=== PATIENT | male | born 1945 | race Caucasian/White ===

== ENCOUNTER 2019-12-15 04:50 | Emergency (ER) | payer MEDICARE, SELFPAY ==
--- NOTE | ~2019-12-15 | CT_ITS ---
EXAMINATION: CT abdomen pelvis w con DATE: 12/15/2019 06:08 INDICATION: Abdominal pain. TECHNIQUE: Computed tomography (CT) of the abdomen and pelvis was performed with 100 mL Omnipaque 350 intravenous contrast. Automated exposure control and iterative reconstruction technique were employe d. The dose-length product was 496.01 mGy-cm. COMPARISON: CT abdomen and pelvis 10/13/2017, PET/CT 01/18/2017 FINDINGS: The visualized portions of the lung bases demonstrate mild atelectasis. No pleural effusion . The heart size is normal. No pericardial effusion. There are cysts in the liver measuring up to 2.6 cm. The gallbladder, spleen, pancreas, and adrenal glands are normal. There is cortical thinning of the kidneys. There are cysts in the kidneys measuring up to 12 mm on the right. There is a 1.8 cm hem orrhagic cyst in left kidney. There is a 9 mm stone in right kidney. There is a 1 mm stone in left ki dney. The prostate is moderately enlarged. There is a 7 mm stone in the bladder. There is diverticulo sis of the colon without evidence of diverticulitis. There are no dilated loops of bowel. The pancrea s are visualized. There is an anastomosis of small bowel. There are 3 mesenteric masses measuring up to 2.0 x 1.5 cm. The largest mesenteric mass measured 4.0 x 2.4 x 4.4 cm on the prior exam before yoselin lakisha. There is no free intraperitoneal fluid. There is severe lumbar spondylosis. There are chronic c ompression fractures and lower thoracic spine. IMPRESSION: 1. Mesenteric masses measuring up to 2.0 x 1.5 cm. Surgical pathology on 01/11/2018 demonstrated scle rosing mesenteritis. 2. Nonobstructing stones in the kidneys and bladder. Reviewed, dictated and finalized at location A. IMPRESSION: 1. Mesenteric masses measuring up to 2.0 x 1.5 cm. Surgical pathology on 2017 demonstrated sclerosing mesenteritis. 2. Nonobstructing stones in the kidneys and bladder.
--- NOTE | 2019-12-15 04:51 | ED.GENADULT ---
HPI - General Adult General Chief complaint: Abdominal Pain Stated complaint: Abd pain Time Seen by Provider: 12/15/19 04:51 History of Present Illness HPI narrative: 74 yo male with h/o ventral hernia s/p lauren presents to the ED c/o abdominal pain. He has been having intermittent abdominal pain for a few weeks. Usually with activity and resolves on its own. Tonight the pain would not go away. The pain is diffuse. Feels like gas. 6/10 in intensity. He reports that he usually has a bowel movement every day, but he only had a small one yesterday and would not be able to have one this morning. Hernia repair about [address] Montero. Related Data Home Medications Medication Instructions Recorded Confirmed Advanced Nerve Support 4 cap PO BID 01/05/19 01/13/19 Azo Urinary Tract Health 1 tablet PO DAILY 01/05/19 01/13/19 Clear Tinnitis 1 tablet PO BID 01/05/19 01/13/19 Daily Build 0.5 tablet PO BID 01/05/19 01/13/19 Efa 1 tablet PO QID 01/05/19 01/13/19 Extreme [place]-3 1 cap PO BID 01/05/19 01/13/19 Formula 220 1 tablet PO BID 01/05/19 01/13/19 Gluco Gel 3 cap PO BID 01/05/19 01/13/19 Joint Health 1 tablet PO QID 01/05/19 01/13/19 Total Restore 1 cap PO BID 01/05/19 01/13/19 alpha lipoic acid 300 mg PO BID 01/05/19 01/13/19 ascorbic acid (vitamin C) 200 mg PO DAILY 01/05/19 01/13/19 cranberry 500 mg PO BID 01/05/19 01/13/19 cyanocobalamin (vitamin B-12) 1,000 mcg PO BID 01/05/19 01/13/19 [Vitamin B-12] niacin 500 mg PO BID 01/05/19 01/13/19 resveratrol 100 mg PO DAILY 01/05/19 01/14/19 selenium 100 mcg PO BID 01/05/19 01/13/19 tamsulosin 1 mg PO DAILY 01/05/19 01/13/19 vitamin D3-vitamin K2 1 tablet PO BID 01/05/19 01/13/19 vitamin E 1,000 unit PO DAILY 01/05/19 01/13/19 Allergies Allergy/AdvReac Type Severity Reaction Status Date / Time No Known Allergies Allergy Verified 02/06/19 13:33 Review of Systems Review of Systems: All systems reviewed & are unremarkable except as noted in HPI and below Constitutional: Constitutional: Denies chills and Denies fever(s) Cardiovascular: Cardiovascular: Denies chest pain Respiratory: Respiratory: Denies cough and Denies dyspnea Gastrointestinal: Gastrointestinal: Reports abdominal pain and Reports nausea Genitourinary: Genitourinary: Denies hematuria and Denies dysuria Musculoskeletal: Musculoskeletal: Denies back pain Neurologic: Denies numbness and Denies weakness PMFSH Past Medical History Medical History 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 Urinary retention due to benign prostatic hyperplasia Takes Flomax Surgical History Surgical History History of resection of small bowel Hand access laparoscopic for sclerosing mesenteritis Hx of umbilical hernia repair Underlay proceed mesh 4.3 centimeters Family History Family History Mother Family history of Alzheimer's disease Father Family history of pancreatic cancer Other Diabetes mellitus Social History Social History Smoking status: Never smoker Alcohol intake: current Gender identity (if verbalized by the patient): Male Exam Const: General: healthy appearing, no acute distress and alert Nutritional Appearance: well nourished Orientation/consciousness: patient oriented x3 HENMT: Head: normal to inspection Resp: Effort & Inspection: normal respiratory effort Auscultation: clear to auscultation bilaterally Cardio: Rate: bradycardic Rhythm: regular rhythm GI: Inspection: distended GI Palp: No Tenderness to palpation present (GI), No Guarding due to palpation present (GI) and No Rebound tenderness present Skin: General skin exam: normal color Neuro: General: patient oriented x3, moves all extremities, no focal motor deficits and CN's II-XI in
[2019-12-15 04:53] VITALS: BP 165/56; PULSE 41; RESP 15; TEMP 36.4; O2SAT 100
[2019-12-15] MEDS: SODIUM CHLORIDE 0.9% IV 1,000 ML 999 ML IV CONT (05:07)
[2019-12-15 05:24] LABS: Basophils Percent Auto 0.4 % (0.2-1.2); Eosinophils Absolute Auto 0.3 K/mm3 (0-0.3); Eosinophils Percent Auto 6.7 % (0-4.4); Hematocrit 38.2 % (42.0-52.0); Hemoglobin 12.7 g/dL (14.0-18.0); Immature Granulocyte Absolute 0.01 K/mm3 (0.00-0.031); Immature Granulocyte Percent A 0.2 % (0-0.5); Lymphocytes Absolute Auto 1.18 K/mm3 (0.9-3.2); Lymphocytes Percent Auto 23.9 % (18.3-44.2); Mean Corpuscular HGB Conc 33.2 g/dl (32-36); Mean Corpuscular Hemoglobin 30.8 pg (26-34); Mean Corpuscular Volume 92.7 fl (80-100); Mean Platelet Volume 10.4 fl (7.4-10.4); Monocytes Absolute Auto 0.6 K/mm3 (0.1-0.6); Monocytes Percent Auto 11.7 % (2.6-8.5); Neutrophils Absolute Auto 2.8 K/mm3 (1.3-6.7); Neutrophils Percent Auto 57.1 % (45.5-73.1); Platelet Count Result 181 k/mm3 (150-375); Red Blood Count 4.12 M/mm3 (4.6-6.20); Red Cell Distribution Width 12.4 % (11.5-14.5); White Blood Count 4.9 K/mm3 (4.5-10.0)
[2019-12-15 05:36] LABS: Add Urine Microscopic? YES; Appearance Urine Cloudy (Clear); Bilirubin Urine Negative (Negative); Blood Urine Negative (Negative); Color Urine Amber (Yellow); Glucose Urine UA Negative (Negative); Ketones Urine Negative (Negative); Leukocyte Esterase Ur Negative LEU/UL (Negative); Mucus Urine Rare /lpf; Nitrate Urine Negative (Negative); Protein Urine Negative (Negative); RBC Urine 21-50 /hpf (0-2); Specific Grav Ur 1.017 (1.001-1.035); Urobilinogen Urine Negative mg/dL (<2.0); WBC Urine 0-3 /hpf
[2019-12-15 05:43] LABS: Alanine Aminotransferase 28 U/L (4-50); Albumin Level 4.2 g/dL (3.5-5.1); Alkaline Phosphatase 71 U/L (38-126); Anion Gap 7 mmol/L (8-16); Aspartate Amino Transferase 36 U/L (17-59); Bilirubin,Total 0.5 mg/dL (0.2-1.3); Blood Urea Nitrogen 31 mg/dL (9-20); Carbon Dioxide 26 mmol/L (22-30); Chloride 106 mmol/L (98-107); Estimated Glomerular Filt Rate 59; Glucose 103 mg/dL (75-110); Lipase 51 U/L (23-300); Potassium 4.5 mmol/L (3.4-5.0); Sodium 139 mmol/L (137-145)
--- NOTE | 2019-12-15 05:44 | ECG_ITS ---
Measurements Intervals [place] Rate: 42 P: 81 DC: 178 QRS: -1 QRSD: 90 T: 71 QT: 481 QTc: 404 Interpretive Statements SINUS BRADYCARDIA VENTRICULAR PREMATURE COMPLEX NONSPECIFIC T-WAVE ABNORMALITY- HIGH LATERAL LEADS BASELINE ARTIFACT- I, III, AVL, V2-V3 ABNORMAL ECG Electronically Signed On 12-15-2019 6:45:24 CDT by Musa Yung D.O.
[2019-12-15 06:13] VITALS: BP 133/57; PULSE 40; RESP 18; O2SAT 100
[2019-12-15] MEDS: TAMSULOSIN HCL 0.4 MG CAPSULE PO (06:24)
[2019-12-15 07:57] VITALS: BP 149/64; PULSE 45; RESP 22; O2SAT 100
== END 2019-12-15 07:58 | disposition home or self-care (01) ==
PROVIDERS: Emergency Provider Emergency Medicine; PCP Pediatrics
DX: N40.1 Benign prostatic hyperplasia with lower urinary tract symptoms (principal); R33.8 Other retention of urine; R00.1 Bradycardia, unspecified; I49.3 Ventricular premature depolarization; R94.31 Abnormal electrocardiogram [ECG] [EKG]
CPT/HCPCS: 36415; 74177; 80053; 81001; 83690; 85025; 93005; 96360; 99284; A9270; J7030; Q9967

== ENCOUNTER 2024-01-10 14:57 | Outpatient (CLI) | payer MEDICARE, SELFPAY ==
--- NOTE | ~2024-01-10 | XR_ITS ---
XR abdomen/kub 1V Ordering provider: Osmar Alvarenga MD History: . CALCIUM KIDNEY STONE NO HEMATURIA BACK PAIN . Comparison: None. FINDINGS: BOWEL: Nonobstructive bowel gas pattern. ORGANOMEGALY: None. SIGNIFICANT PATHOLOGIC CALCIFICATIONS: Stones are seen in the right kidney area. Calcific shadow projected over the left transverse process of L2 most likely stone in the renal pelvi s or upper ureter. OTHER: No free air is seen under the diaphragm. Dextroscoliosis. Pubic symphysitis. Mild bilateral hi p osteoarthritic changes. IMPRESSION: NO ACUTE ABDOMINAL FINDINGS. Bilateral renal stones. Reviewed, dictated and finalized at location A. 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
== END 2024-01-10 14:58 | disposition home or self-care (01) ==
LOC: ANHIMG 14:58
PROVIDERS: PCP Pediatrics; Visit Provider Urology
DX: N20.0 Calculus of kidney (principal)
CPT/HCPCS: 74018

== ENCOUNTER 2024-01-15 17:12 | Observation (INO) | payer MEDICARE, OTHER, SELFPAY ==
--- NOTE | ~2024-01-15 | XR_ITS ---
EXAMINATION: XR retrograde pyelo w/stent RT DATE: 01/16/2024 7:50 AUTO DAMAGE APPRAISER INDICATION: Stone . TECHNIQUE: 7 fluoroscopic images of the right abdomen and pelvis were obtained during right retrograd e pyelography with stent placement. I was not present during the procedure. Fluoroscopy exposure time was 58 seconds. Air Kerma 22.97 mGy. DAP 1.05 mGym2. COMPARISON: None FINDINGS/IMPRESSION: Fluoroscopic documentation of right retrograde pyelography with stent placement. Please refer to the operative note for complete procedural details . Reviewed, dictated and finalized at location K. DAMAGE APPRAISER
--- NOTE | ~2024-01-15 | CT_ITS ---
EXAMINATION: CT abdomen pelvis wo con DATE: 01/15/2024 19:28 INDICATION: R flank pain, known stone TECHNIQUE: Computed tomography (CT) of the abdomen and pelvis was performed without intravenous contr ast. Automated exposure control and iterative reconstruction technique were employed. The dose-length product was 260.04 mGy-cm. COMPARISON: 12/15/2019 and 10/13/2017. FINDINGS: Lower thorax: Mild bilateral gynecomastia. Aortic valve calcification. Calcified right lower lobe gra nuloma. Bibasilar scar/atelectasis. Liver: Granulomatous calcification. Left lobe cyst. Biliary/Gallbladder: Gallbladder is normal. No bile duct dilation. Pancreas: Mild fatty atrophy. Spleen: Normal. Adrenals:No mass. Kidneys: 10 x 12 mm stone at the right UPJ. Multiple additional nonobstructing bilateral renal calcif ications. Mild right pelviectasis and caliectasis. Simple left midpole cyst. Multiple subcentimeter h ypodense lesions likely representing hemorrhagic or proteinaceous cysts. Indeterminate 1.0 cm right u pper pole lesion that is stable and likely represents a proteinaceous or hemorrhagic cyst. 2.1 cm lef t lower pole lesion, not significantly changed, likely proteinaceous or hemorrhagic cyst. Multiple ad ditional bilateral renal hypodensities that are too small to characterize. GI tract: No small or large bowel dilation. Appendix not confidently visualized. Mesentery/Peritoneum: No free air. Nodular calcified mesenteric masses, slightly increased in size. Retroperitoneum: No mass. Atherosclerotic abdominal aortic and/or arterial calcifications. Pelvis: Partially distended urinary bladder with mild wall thickening. Prostatomegaly 3 mm and 4 mm c alcifications in the distal right ureter. Soft Tissues: Uncomplicated fat-containing bilateral inguinal hernias Bones: No acute osseous finding. Stable mild height loss at T12. IMPRESSION: 10 x 12 mm right UPJ stone with mild pelviectasis and caliectasis. 3 mm and 4 mm calcifications also noted in the distal right ureter. Nodular calcified mesenteric masses, previously biopsied revealing fibrosis with lymphoplasmacytic in filtrate. 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 Urinary bladder wall thickening likely secondary to incomplete distention, cystitis, or outlet compro mise from prostatomegaly. Reviewed, dictated and finalized at location [facility] IMPRESSION: 10 x 12 mm right UPJ stone with mild pelviectasis and caliectasis. 3 mm and 4 m m calcifications also noted in the distal right ureter. Nodular calcified mesenteric masses, previously biopsied revealing fibrosis wit h lymphoplasmacytic infiltrate. Imaging appearance also consistent with scleros ing mesenteritis and carcinoid. Urinary bladder wall thickening likely secondary to incomplete distention, cyst itis, or outlet compromise from prostatomegaly.
[2024-01-15 17:21] VITALS: BP 187/82; PULSE 52; RESP 16; TEMP 36.2; O2SAT 100
[2024-01-15 17:38] LABS: Basophils Percent Auto 0.3 % (0.2-1.2); Eosinophils Absolute Auto 0.1 K/mm3 (0-0.3); Eosinophils Percent Auto 1.6 % (0-4.4); Hematocrit 38.3 % (42.0-52.0); Hemoglobin 12.9 g/dL (14.0-18.0); Immature Granulocyte Absolute 0.03 K/mm3 (0.00-0.031); Immature Granulocyte Percent A 0.3 % (0-0.5); Lymphocytes Absolute Auto 0.92 K/mm3 (0.9-3.2); Lymphocytes Percent Auto 10.6 % (18.3-44.2); Mean Corpuscular HGB Conc 33.7 g/dl (32-36); Mean Corpuscular Hemoglobin 30.6 pg (26-34); Mean Platelet Volume 9.2 fl (7.4-10.4); Monocytes Absolute Auto 0.8 K/mm3 (0.1-0.6); Monocytes Percent Auto 8.8 % (2.6-8.5); Neutrophils Absolute Auto 6.8 K/mm3 (1.3-6.7); Neutrophils Percent Auto 78.4 % (45.5-73.1); Platelet Count Result 231 k/mm3 (150-375); Red Blood Count 4.21 M/mm3 (4.6-6.20); Red Cell Distribution Width 12.4 % (11.5-14.5); White Blood Count 8.7 K/mm3 (4.5-10.0)
--- NOTE | 2024-01-15 17:44 | ED.BACK ---
HPI - Back Pain/Injury General Chief Complaint: Back Pain/Injury Stated Complaint: right side kidney stone pain Time Seen by Provider: 01/15/24 17:35 Source: patient Mode of arrival: ambulatory Limitations: no limitations History of Present Illness HPI Narrative: This is an 78-year-old male with known nephrolithiasis on the right-sided presents to the ED for chief complaint of right flank pain onset over a week ago and has been intermittent. Reports that he was seen by earlier this week who wanted him in for a lithotripsy, however they were not able to do this due to patient being on diclofenac. Patient reports that yesterday he was feeling all right but today the pain came on all worse and was associated with nausea but no vomiting. Denies urinary burning, dysuria or hematuria. Denies any left-sided pain. Related Data Home Medications Medication Instructions Recorded Confirmed Advanced Nerve Support 4 cap PO BID 01/05/19 01/15/24 Efa 1 tablet PO QID 01/05/19 01/15/24 Formula 220 1 tablet PO BID 01/05/19 01/15/24 Gluco Gel 3 cap PO BID 01/05/19 01/15/24 alpha lipoic acid 300 mg capsule 300 mg PO BID 01/05/19 01/15/24 cranberry 500 mg capsule 500 mg PO BID 01/05/19 01/15/24 omega 3-dha 120 mg-epa 180 mg-fish 1 cap PO BID 01/05/19 01/15/24 oil 600 mg capsule (Extreme [place]-3) resveratrol 100 mg capsule 100 mg PO DAILY 01/05/19 01/15/24 tamsulosin 0.4 mg capsule 1 mg PO DAILY 01/05/19 01/15/24 vitamin E 670 mg (1,000 unit) 1,000 unit PO DAILY 01/05/19 01/15/24 capsule Allergies Allergy/AdvReac Type Severity Reaction Status Date / Time No Known Allergies Allergy Verified 01/15/24 17:19 Review of Systems Review of Systems: All systems as dictated in HPI [facility] Past Medical History Medical History (Updated 01/16/24 @ 00:44 by Desiree Andrade DO) Calculus, ureteral 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 Montero History of resection of small bowel (2018) Hand access laparoscopic for sclerosing mesenteritis Hx of umbilical hernia repair (2014) Initial surgery in 2014: Underlay proceed mesh 4.3 centimeters Family History Family History Mother Family history of Alzheimer's disease Father Family history of pancreatic cancer Other Diabetes mellitus Social History Social History (Updated 01/16/24 @ 00:48 by Desiree Andrade DO) Social History: Patient lives with his 2nd . They have been since 1982. 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 He and his spend part of the year in [place]. He raised 2 sons. He is a lifelong nonsmoker and does not drink alcohol or use illicit substances. Code status: Full code Healthcare power of commercial real estate attorney: Smoking status: Never smoker Alcohol intake: never Substance use: never Do You Feel Safe in your Home?: Yes Lack of Transportation: No Lack of Food: Never True Current Housing: I Have Housing Concerned About Future Housing: No Difficulty Paying Gas/Electric Bills: No Difficulty Paying for Meds: No Currently Unemployed: No Education: Bachelor's Degree Difficulty w/ Childcare or Family Care: No Gender identity (if verbalized by the patient): Male Spiritual care concerns: No Exam Narrative: GENERAL: Well-appearing, well-nourished, and in no acute distress. HEAD: Normocephalic, atraumatic. EYES: PERRLA and EOMI. ENT: Nares clear, no rhinorrhea or epistaxis. Mucous membranes moist. Oropharynx without tonsillar hypertrophy exudate or other lesions. NECK: Supple. No adenopathy or masses. CHEST: No respiratory distress. Clear to auscultation. No wheezes rales or rhonchi HEART: Regular rate and rhythm. No murmur heard. Normal peripheral pulses. ABDOMEN: Right flank tenderness present. Negative left flank. Soft, otherwise nontender, nondistended, normal active bowel sounds. MSK: Normal range of motion. No edema. SKIN: Warm, dry, no rash. NEURO: Alert and oriented x4. No focal deficits. PSYCH: Normal mood and affect. Course Vital Signs Vital signs: Vital Signs Temperature 97.2 F L 01/15/24 17:21 Pulse Rate 52 L 01/15/24 17:21 Respiratory Rate 16 01/15/24 17:21 Blood Pressure 187/82 H 01/15/24 17:21 Pulse Oximetry 100 01/15/24 17:21 Temperature 98.5 F 01/15/24 23:56 Pulse Rate 59 L 01/15/24 23:56 Respiratory Rate 20 01/15/24 23:56 Blood Pressure 108/54 L 01/15/24 23:56 Pulse Oximetry 98 01/15/24 23:56 MDM - Back Pain/Injury MDM Narrative Medical decision making narrative: This is a 78 yo male presents to the ED for right flank pain over the past 2 weeks and worse today. Vitals show elevated blood pressure but otherwise normal. Exam shows right flank tenderness as above. Lab work shows unremarkable CBC. CMP shows slightly elevated potassium of 5.1. Creatinine is 2.00 and BUN 22, which is a bump from his baseline in 2019. Suspect dehydration versus diclofenac use for cause of elevated creatinine, along with the stone. Urinalysis unremarkable. CT abdomen pelvis without con: IMPRESSION: 10 x 12 mm right UPJ stone with mild pelviectasis and caliectasis. 3 mm and 4 mm calcifications also noted in the distal right ureter. Nodular calcified mesenteric masses, previously biopsied revealing fibrosis with lymphoplasmacytic infiltrate. 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 Urinary bladder wall thickening likely secondary to incomplete distention, cystitis, or outlet compromise from prostatomegaly. Presentation consistent with right ureterolithiasis. Discussed the case with Dr. العراقي (Urology) does recommend admission to the hospitalist. Recommends keeping the patient NPO midnight. Patient is understanding and agreeable with this plan of admission. Discussed the case with Dr. Andrade who agrees to admit the patient to medical floor and is requesting maintenance fluids ordered. Lab Data 01/15/24 17:29 01/15/24 17:29 Labs: Lab Results 01/15/24 01/15/24 Range/Units 17:29 17:56 WBC 8.7 (4.5-10.0) K/mm3 RBC 4.21 L (4.6-6.20) M/mm3 Hgb 12.9 L (14.0-18.0) g/dL Hct 38.3 L (42.0-52.0) % MCV 91.0 (80-100) fl MCH 30.6 (26-34) pg MCHC 33.7 (32-36) g/dl RDW 12.4 (11.5-14.5) % Plt Count 231 (150-375) k/mm3 MPV 9.2 (7.4-10.4) fl Immature Gran % (Auto) 0.3 (0-0.5) % Neut % (Auto) 78.4 H (45.5-73.1) % Lymph % (Auto) 10.6 L (18.3-44.2) % King % (Auto) 8.8 H (2.6-8.5) % Eos % (Auto) 1.6 (0-4.4) % Baso % (Auto) 0.3 (0.2-1.2) % Lymph # (Auto) 0.92 (0.9-3.2) K/mm3 King # (Auto) 0.8 H (0.1-0.6) K/mm3 Eos # (Auto) 0.1 (0-0.3) K/mm3 Baso # (Auto) 0.0 (0.0-0.1) K/mm3 Abs Immat Gran (auto) 0.03 (0.00-0.031) K/mm3 Absolute Neuts (auto) 6.8 H (1.3-6.7) K/mm3 Absolute Nucleated RBC 0.000 (0.0-0.012) K/mm3 Nucleated RBC % 0.0 (0.0-0.2) % PT 14.0 (11.1-14.7) Seconds INR 1.1 APTT 28.5 (22.3-36.8) Seconds Sodium 137 (137-145) mmol/L Potassium 5.1 H (3.4-5.0) mmol/L Chloride 102 (98-107) mmol/L Carbon Dioxide 25 (22-30) mmol/L Anion Gap 10 (4-12) mmol/L BUN 22 H (9-20) mg/dL Creatinine 2.00 H (0.7-1.3) mg/dL Estim Creat Clear Calc 24 ml/min Estimated GFR 32 L (59 - ) Glucose 107 (65-110) mg/dL Calcium 9.1 (8.4-10.2) mg/dL Total Bilirubin 0.3 (0.2-1.3) mg/dL AST 21 (17-59) U/L ALT 17 (6-50) U/L Alkaline Phosphatase 76 (38-126) U/L Total Protein 8.0 (6.3-8.2) g/dL Albumin 4.5 (3.5-5.1) g/dL Urine Color Yellow (Yellow) Urine Appearance Clear (Clear) Urine pH 6.0 (5.0-9.0) Ur Specific [place] 1.020 (1.001-1.035) Urine Protein Negative (Negative) mg/dL Urine Glucose (UA) Negative (Negative) mg/dL Urine Ketones Negative (Negative) mg/dL Ur Blood (Man) Negative (Negative) Urine Nitrate Negative (Negative) Urine Bilirubin Negative (Negative) Urine Urobilinogen 0.2 (<2.0) mg/dL Leukocyte Esterase Rfl Negative (Negative) ANEL/UL Discharge Plan Discharge Clinical Impression: Calculus, ureteral, Creatinine elevation Patient Disposition: Still a Patient Condition: Stable
[2024-01-15 17:49] LABS: Alanine Aminotransferase 17 U/L (6-50); Albumin Level 4.5 g/dL (3.5-5.1); Alkaline Phosphatase 76 U/L (38-126); Anion Gap 10 mmol/L (4-12); Aspartate Amino Transferase 21 U/L (17-59); Bilirubin,Total 0.3 mg/dL (0.2-1.3); Blood Urea Nitrogen 22 mg/dL (9-20); Calcium 9.1 mg/dL (8.4-10.2); Carbon Dioxide 25 mmol/L (22-30); Chloride 102 mmol/L (98-107); Estimated CRCL calculation 24 ml/min; Estimated Glomerular Filt Rate 32; Glucose 107 mg/dL (65-110); Potassium 5.1 mmol/L (3.4-5.0); Sodium 137 mmol/L (137-145)
[2024-01-15] MEDS: ONDANSETRON INJ 4 MG/2 ML VIAL IV PUSH ×2 (17:49→19:49)
[2024-01-15] MEDS: HYDROmorphone HCL INJ (*CRX) 1 MG/ML SYR 0.5 MG IV PUSH ×2 (17:49→19:49)
[2024-01-15 17:50] LABS: INR 1.1; Partial Thromboplastin Time 28.5 Seconds (22.3-36.8)
[2024-01-15 18:03] LABS: Add Urine Microscopic? NO; Appearance Urine Clear (Clear); Bilirubin Urine Negative (Negative); Blood Urine Negative (Negative); Color Urine Yellow (Yellow); Glucose Urine UA Negative (Negative); Ketones Urine Negative (Negative); Leukocyte Esterase Ur Negative LEU/UL (Negative); Nitrate Urine Negative (Negative); Protein Urine Negative (Negative); Urobilinogen Urine 0.2 mg/dL (<2.0)
[2024-01-15 19:49] VITALS: BP 154/74; PULSE 50; RESP 18; O2SAT 100
--- NOTE | 2024-01-15 20:22 | WPDURCON ---
Assessment and Plan Assessment and plan (1) Calculus of ureter: Code(s): N20.1 - Calculus of ureter Status: Acute Assessment and Plan: Assessment: - Right ureteral stones (small distal, large proximal) with obstruction and acute kidney injury Plan: - Admit to hospital - NPO after midnight - Cystoscopy, right retrograde pyelogram, ureteroscopy, laser lithotripsy, and stent placement tomorrow -- will try to treat the distal stones, stent him, setting him up for a single surgery electively as an outpatient: Right ESWL w/ Stent removal - Prophylactic antibiotics: Rocephin 1 gram being given in ER Urology Consult Note HPI Date Seen: 01/16/24 Primary Care Provider: Cody Garza MD Consult Narrative Narrative: Jaden Flores is an established patient of Dr. Alvarenga with a known right-sided kidney stone. He was scheduled for lithotripsy this week but it was postponed due to diclofenac use. Yesterday he was feeling okay, but today presented to the ED with worsening right flank pain. CT abdomen/pelvis without contrast demonstrates a 1.2 cm right proximal ureteral stone, 3-4 mm distal right ureteral stones, 8 mm non-obstructing right lower pole stone, and 3-4 mm non-obstructing left lower pole stone. There is mild pelvicaliectasis on the right side. -PERTINENT LABS: 01/15/2024 - WBC: 8.7 01/15/2024 - Hematocrit: 38 01/15/2024 - Platelets: 231 01/15/2024 - Creatinine: 2.0 (baseline 0.8) -PERTINENT IMAGIN01/15/2024 CT Abdomen/Pelvis (without contrast) - 1.2 cm right proximal ureteral stone, 3-4 mm distal right ureteral stones, 8 mm non-obstructing right lower pole stone, 3-4 mm non-obstructing left lower pole stone, mild right-sided pelvicaliectasis 01/15/2024 UA: Negative for blood or infection Review of Systems Review of Systems: All systems reviewed & are unremarkable except as noted in HPI and below PMFSH Past Medical History Medical History (Updated 01/16/24 @ 06:45 by Kristin Thomas CRNA) Arthritis Calculus, ureteral 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 Montero History of resection of small bowel (2018) Hand access laparoscopic for sclerosing mesenteritis Hx of umbilical hernia repair (2014) Initial surgery in 2014: Underlay proceed mesh 4.3 centimeters Family History Family History Mother Family history of Alzheimer's disease Father Family history of pancreatic cancer Other Diabetes mellitus Social History Social History (Updated 01/16/24 @ 00:48 by Desiree Andrade DO) Social History: Patient lives with his 2nd . They have been since 1982. 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 He and his spend part of the year in [place]. He raised 2 sons. He is a lifelong nonsmoker and does not drink alcohol or use illicit substances. Code status: Full code Healthcare power of workers compensation defense attorney: Smoking status: Never smoker Alcohol intake: never Substance use: never Do You Feel Safe in your Home?: Yes Lack of Transportation: No Lack of Food: Never True Current Housing: I Have Housing Concerned About Future Housing: No Difficulty Paying Gas/Electric Bills: No Difficulty Paying for Meds: No Currently Unemployed: No Education: Bachelor's Degree Difficulty w/ Childcare or Family Care: No Gender identity (if verbalized by the patient): Male Spiritual care concerns: No Meds Home Medications and Allergies Home Medications Medication Instructions Recorded Confirmed Type Advanced Nerve Support 4 cap PO BID 01/05/19 01/15/24 History Efa 1 tablet PO QID 01/05/19 01/15/24 History Formula 220 1 tablet PO BID 01/05/19 01/15/24 History Gluco Gel 3 cap PO BID 01/05/19 01/15/24 History alpha lipoic acid 300 mg capsule 300 mg PO BID 01/05/19 01/15/24 History cranberry 500 mg capsule 500 mg PO BID 01/05/19 01/15/24 History omega 3-dha 120 mg-epa 180 mg-fish 1 cap PO BID 01/05/19 01/15/24 History oil 600 mg capsule (Extreme [place]-3) resveratrol 100 mg capsule 100 mg PO DAILY 01/05/19 01/15/24 History tamsulosin 0.4 mg capsule 1 mg PO DAILY 01/05/19 01/15/24 History vitamin E 670 mg (1,000 unit) 1,000 unit PO DAILY 01/05/19 01/15/24 History capsule Allergies Allergy/AdvReac Type Severity Reaction Status Date / Time No Known Allergies Allergy Verified 01/15/24 17:19 Vital Signs Vital Signs - 24 hr 01/15/24 17:21 01/15/24 19:49 Temperature 36.2 C L Pulse Rate 52 L 50 L Respiratory Rate 16 18 Blood Pressure 187/82 H 154/74 H Pulse Oximetry 100 100 Exam Narrative: No acute distress, but appears in some discomfort Results Labs 01/15/24 17:29 01/15/24 17:29 Labs: Short CBC 01/15/24 Range/Units 17:29 WBC 8.7 (4.5-10.0) K/mm3 Hgb 12.9 L (14.0-18.0) g/dL Hct 38.3 L (42.0-52.0) % Plt Count 231 (150-375) k/mm3 BMP 01/15/24 17:29 Sodium 137 Potassium 5.1 H Chloride 102 Carbon Dioxide 25 BUN 22 H Creatinine 2.00 H Glucose 107 Calcium 9.1 Liver Function 01/15/24 Range/Units 17:29 Total Bilirubin 0.3 (0.2-1.3) mg/dL AST 21 (17-59) U/L ALT 17 (6-50) U/L Alkaline Phosphatase 76 (38-126) U/L Albumin 4.5 (3.5-5.1) g/dL Urine 01/15/24 Range/Units 17:56 Urine Color Yellow (Yellow) Urine Appearance Clear (Clear) Urine pH 6.0 (5.0-9.0) Ur Specific [place] 1.020 (1.001-1.035) Urine Protein Negative (Negative) mg/dL Urine Glucose (UA) Negative (Negative) mg/dL
--- NOTE | 2024-01-15 21:57 | PC.NURSE ---
This RN was just notified of pt bed assignment @ [id number]
[2024-01-15 22:09] VITALS: BP 169/74; PULSE 64; RESP 18; O2SAT 99
[2024-01-15 22:27] VITALS: BMI 27.3
--- NOTE | 2024-01-15 22:28 | ADMGEN ---
This patient, Jaden Flores, was admitted to Medical Room 340-01@ [id number]. Patient/family oriented to hospital policies and general routines including ID bracelet, bed and alarms, visiting hours, pain management, procedures, bathroom and other care routines, personal items, smoking policy, room service/diet, and visiting hours. Information on how to activate the Rapid Response Team has been discussed. Patient/Family are encouraged to report perceived risks to care and to ask questions if they do not understand what they are told or what they should do.
[2024-01-15] MEDS: SODIUM CHLORIDE 0.9% IV 1,000 ML 125 ML IV CONT (22:42)
[2024-01-15 23:56] VITALS: BP 108/54; PULSE 59; RESP 20; TEMP 36.9; O2SAT 98
[2024-01-16] VITALS (8 sets, daily range): BP systolic 127–166; BP diastolic 58–75; PULSE 41–55; RESP 14–20; TEMP 36.1–36.5; O2SAT 98–100
[2024-01-16] MEDS: HYDROmorphone HCL INJ (*CRX) 1 MG/ML SYR 0.5 MG IV PUSH (00:03)
--- NOTE | 2024-01-16 00:14 | PM.IMHP ---
H&P: HPI History of Present Illness Date/Time: 01/15/24 21:40 Chief Complaint: Kidney stone with worsening pain Narrative: 78-year-old male with past medical history of BPH in distant history of kidney stones who presented to the ER with worsening right-sided abdominal pain. The patient reports that he initially had pain from the kidney stones the 1st week in December. He reported that initially the pain was more in the right flank. He went to the ER in [place] and had a CT scan which demonstrated stone and was given pain medications. His symptoms improved and that he followed up with Urology as outpatient. Urology wanted to do a procedure due to the patient's stone being quite large but the patient was on diclofenac. He was instructed to hold the medication. He had recurrence of his symptoms a week later that were relieved with the [place] that had been provided at the ER. Then today he reported acute worsening of pain it was significantly more severe and not relieved with oral medications. Has had some associated nausea but no vomiting. He denies dysuria, hematuria or changes in urinary frequency. He does usually have to urinate every 2-3 hours. He is on Flomax for BPH. Review of Systems Review of Systems: 12 systems were reviewed with pertinent positives and negatives per HPI. Except as documented in the HPI, all other systems were reviewed and are negative. 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 Montero History of resection of small bowel (2018) Hand access laparoscopic for sclerosing mesenteritis Hx of umbilical hernia repair (2013) Initial surgery in 2014: Underlay proceed mesh 4.3 centimeters Family History Family History Mother Family history of Alzheimer's disease Father Family history of pancreatic cancer Other Diabetes mellitus Social History Social History (Updated 01/16/24 @ 00:48 by Desiree Andrade DO) Social History: Patient lives with his 2nd . They have been since 1982. 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 He and his spend part of the year in [place]. He raised 2 sons. He is a lifelong nonsmoker and does not drink alcohol or use illicit substances. Code status: Full code Healthcare power of negative retoucher: Smoking status: Never smoker Alcohol intake: never Substance use: never Do You Feel Safe in your Home?: Yes Lack of Transportation: No Lack of Food: Never True Current Housing: I Have Housing Concerned About Future Housing: No Difficulty Paying Gas/Electric Bills: No Difficulty Paying for Meds: No Currently Unemployed: No Education: Bachelor's Degree Difficulty w/ Childcare or Family Care: No Gender identity (if verbalized by the patient): Male Spiritual care concerns: No Meds Home Medications and Allergies Home Medications Medication Instructions Recorded Confirmed Type Advanced Nerve Support 4 cap PO BID 01/05/19 01/15/24 History Efa 1 tablet PO QID 01/05/19 01/15/24 History Formula 220 1 tablet PO BID 01/05/19 01/15/24 History Gluco Gel 3 cap PO BID 01/05/19 01/15/24 History alpha lipoic acid 300 mg capsule 300 mg PO BID 01/05/19 01/15/24 History cranberry 500 mg capsule 500 mg PO BID 01/05/19 01/15/24 History omega 3-dha 120 mg-epa 180 mg-fish 1 cap PO BID 01/05/19 01/15/24 History oil 600 mg capsule (Extreme [place]-3) resveratrol 100 mg capsule 100 mg PO DAILY 01/05/19 01/15/24 History tamsulosin 0.4 mg capsule 1 mg PO DAILY 01/05/19 01/15/24 History vitamin E 670 mg (1,000 unit) 1,000 unit PO DAILY 01/05/19 01/15/24 History capsule Allergies Allergy/AdvReac Type Severity Reaction Status Date / Time No Known Allergies Allergy Verified 01/15/24 17:19 Vital Signs Vital Signs - 24 hr 01/15/24 17:21 01/15/24 19:49 01/15/24 22:09 Temperature 97.2 F L Pulse Rate 52 L 50 L 64 Respiratory Rate 16 18 18 Blood Pressure 187/82 H 154/74 H 169/74 H Pulse Oximetry 100 100 99 01/15/24 23:56 Temperature 98.5 F Pulse Rate 59 L Respiratory Rate 20 Blood Pressure 108/54 L Pulse Oximetry 98 Exam Narrative: Weight 77 kg BMI 27.4 Const: Other: No acute distress, well-developed well-nourished, appears younger than stated age HENMT: Other: Mucous membranes are moist, no oral pharyngeal erythema Eyes: Other: Pupils are equal and reactive, no scleral icterus, no conjunctival pallor Neck: Other: No JVD, no lymphadenopathy Resp: Other: Clear to auscultation bilaterally, no increased work of breathing, Cardio: Other: Sinus bradycardia, no murmurs, 2+ bilateral radial pedal pulses GI: Other: Soft, nontender, distended, positive bowel sounds Skin: Other: No jaundice, no pallor Neuro: Other: Alert oriented, speech is clear, no facial asymmetry Extrem: Other: No clubbing, cyanosis or edema, moves all extremities equally Psych: Other: Appropriate mood and affect, pleasant and cooperative, judgment and insight intact H&P: Results Labs Labs: Laboratory Tests 01/15/24 17:29 01/15/24 17:29 01/15/24 01/15/24 17:29 17:56 WBC 8.7 RBC 4.21 L Hgb 12.9 L Hct 38.3 L MCV 91.0 MCH 30.6 MCHC 33.7 RDW 12.4 Plt Count 231 MPV 9.2 Immature Gran % (Auto) 0.3 Neut % (Auto) 78.4 H Lymph % (Auto) 10.6 L [place] % (Auto) 8.8 H Eos % (Auto) 1.6 Baso % (Auto) 0.3 Lymph # (Auto) 0.92 [place] # (Auto) 0.8 H Eos # (Auto) 0.1 Baso # (Auto) 0.0 Abs Immat Gran (auto) 0.03 Absolute Neuts (auto) 6.8 H Absolute Nucleated RBC 0.000 Nucleated RBC % 0.0 PT 14.0 INR 1.1 APTT 28.5 Sodium 137 Potassium 5.1 H Chloride 102 Carbon Dioxide 25 Anion Gap 10 BUN 22 H Creatinine 2.00 H Estim Creat Clear Calc 24 Estimated GFR 32 L Glucose 107 Calcium 9.1 Total Bilirubin 0.3 AST 21 ALT 17 Alkaline Phosphatase 76 Total Protein 8.0 Albumin 4.5 Urine Color Yellow Urine Appearance Clear Urine pH 6.0 Ur Specific [place] 1.020 Urine Protein Negative Urine Glucose (UA) Negative Urine Ketones Negative Ur Blood (Man) Negative Urine Nitrate Negative Urine Bilirubin Negative Urine Urobilinogen 0.2 Leukocyte Esterase Rfl Negative Impressions Abdomen/Pelvis CT 01/15/24 19:31 (personally reviewed and interpreted) IMPRESSION: 10 x 12 mm right UPJ stone with mild pelviectasis and caliectasis. 3 mm and 4 mm calcifications also noted in the distal right ureter. Nodular calcified mesenteric masses, previously biopsied revealing fibrosis with lymphoplasmacytic infiltrate. 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 Urinary bladder wall thickening likely secondary to incomplete distention, cystitis, or outlet compromise from prostatomegaly. Assessment and Plan Assessment and plan (1) Calculus of proximal right ureter: Code(s): N20.1 - Calculus of ureter Status: Acute (2) Acute kidney injury: Code(s): N17.9 - Acute kidney failure, unspecified Status: Acute Plan Patient has obstructing proximal 10 x 12 mm stone on the right with associated hydro ureter. Patient has had recurrent symptoms despite conservative outpatient management and has associated acute kidney injury. Will place patient on IV fluid hydration and p.r.n. medications. Urology has been consulted and patient is scheduled for cystoscopy with stent placement in possible lithotripsy 4 07:30.. Will monitor input output closely repeat electrolyte panel in a.m.. The patient has a heart healthy diet ordered until midnight then NPO. Will continue home Flomax. Patient has been admitted as observation status. Quality VTE Prophylaxis VTE prophylaxis: mechanical ordered (SCDs) Hospitalist MIPS Advance Care Plan I have confirmed that the patient's Advanced Care Plan is present, code status is documented, or surrogate decision maker is listed in patient medical record.: Yes Medication Reconciliation I have utilized all available resources to obtain, update and review the patients current medications (includes all prescriptions, OTC, herbals, cannabis, and nutritional supplements).: Yes
--- NOTE | 2024-01-16 06:42 | WPDANESEPP ---
Anes - Eval Pre Procedure Procedure: cystoscopy right side special Date/Time: 01/16/24 06:42 Surgeon: lexy Preop Diagnosis: right ureteral stones with obstruction and JOHN Pre Op Diagnosis: right ureterolithiasis Patient Data Age: 78 Gender: M Height: 1.68 m Weight: 77 kg Last Vital Signs Temp 36.9 C 01/15/24 23:56 Pulse 59 L 01/15/24 23:56 Resp 20 01/15/24 23:56 BP 108/54 L 01/15/24 23:56 Pulse Ox 98 01/15/24 23:56 Allergies Allergy/AdvReac Type Severity Reaction Status Date / Time No Known Allergies Allergy Verified 01/15/24 17:19 Home Medications Medication Instructions Recorded Confirmed Type Advanced Nerve Support 4 cap PO BID 01/05/19 01/15/24 History Efa 1 tablet PO QID 01/05/19 01/15/24 History Formula 220 1 tablet PO BID 01/05/19 01/15/24 History Gluco Gel 3 cap PO BID 01/05/19 01/15/24 History alpha lipoic acid 300 mg capsule 300 mg PO BID 01/05/19 01/15/24 History cranberry 500 mg capsule 500 mg PO BID 01/05/19 01/15/24 History omega 3-dha 120 mg-epa 180 mg-fish 1 cap PO BID 01/05/19 01/15/24 History oil 600 mg capsule (Extreme [place]-3) resveratrol 100 mg capsule 100 mg PO DAILY 01/05/19 01/15/24 History tamsulosin 0.4 mg capsule 1 mg PO DAILY 01/05/19 01/15/24 History vitamin E 670 mg (1,000 unit) 1,000 unit PO DAILY 01/05/19 01/15/24 History capsule Laboratory Tests 01/15/24 01/15/24 17:29 17:56 WBC 8.7 K/mm3 (4.5-10.0) RBC 4.21 L M/mm3 (4.6-6.20) Hgb 12.9 L g/dL (14.0-18.0) Hct 38.3 L % (42.0-52.0) MCV 91.0 fl (80-100) MCH 30.6 pg (26-34) MCHC 33.7 g/dl (32-36) RDW 12.4 % (11.5-14.5) Plt Count 231 k/mm3 (150-375) MPV 9.2 fl (7.4-10.4) Immature Gran % (Auto) 0.3 % (0-0.5) Neut % (Auto) 78.4 H % (45.5-73.1) Lymph % (Auto) 10.6 L % (18.3-44.2) [place] % (Auto) 8.8 H % (2.6-8.5) Eos % (Auto) 1.6 % (0-4.4) Baso % (Auto) 0.3 % (0.2-1.2) Lymph # (Auto) 0.92 K/mm3 (0.9-3.2) [place] # (Auto) 0.8 H K/mm3 (0.1-0.6) Eos # (Auto) 0.1 K/mm3 (0-0.3) Baso # (Auto) 0.0 K/mm3 (0.0-0.1) Abs Immat Gran (auto) 0.03 K/mm3 (0.00-0.031) Absolute Neuts (auto) 6.8 H K/mm3 (1.3-6.7) Absolute Nucleated RBC 0.000 K/mm3 (0.0-0.012) Nucleated RBC % 0.0 % (0.0-0.2) PT 14.0 Seconds (11.1-14.7) INR 1.1 APTT 28.5 Seconds (22.3-36.8) Sodium 137 mmol/L (137-145) Potassium 5.1 H mmol/L (3.4-5.0) Chloride 102 mmol/L (98-107) Carbon Dioxide 25 mmol/L (22-30) Anion Gap 10 mmol/L (4-12) BUN 22 H mg/dL (9-20) Creatinine 2.00 H mg/dL (0.7-1.3) Estim Creat Clear Calc 24 ml/min Estimated GFR 32 L (59 - ) Glucose 107 mg/dL (65-110) Calcium 9.1 mg/dL (8.4-10.2) Total Bilirubin 0.3 mg/dL (0.2-1.3) AST 21 U/L (17-59) ALT 17 U/L (6-50) Alkaline Phosphatase 76 U/L (38-126) Total Protein 8.0 g/dL (6.3-8.2) Albumin 4.5 g/dL (3.5-5.1) Urine Color Yellow (Yellow) Urine Appearance Clear (Clear) Urine pH 6.0 (5.0-9.0) Ur Specific [place] 1.020 (1.001-1.035) Urine Protein Negative mg/dL (Negative) Urine Glucose (UA) Negative mg/dL (Negative) Urine Ketones Negative mg/dL (Negative) Ur Blood (Man) Negative (Negative) Urine Nitrate Negative (Negative) Urine Bilirubin Negative (Negative) Urine Urobilinogen 0.2 mg/dL (<2.0) Leukocyte Esterase Rfl Negative ANEL/UL (Negative) Patient hx anesthesia problems: none Family hx anesthesia problems: none Results Review: All pre-operative results and documents have been reviewed as part of the pre-operative evaluation. 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 Montero History of resection of small bowel (2018) Hand access laparoscopic for sclerosing mesenteritis Hx of umbilical hernia repair (2013) Initial surgery in 2014: Underlay proceed mesh 4.3 centimeters Family History Family History Mother Family history of Alzheimer's disease Father Family history of pancreatic cancer Other Diabetes mellitus Social History Social History (Updated 01/16/24 @ 00:48 by Desiree Andrade DO) Social History: Patient lives with his 2nd . They have been since 1982. 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 He and his spend part of the year in [place]. He raised 2 sons. He is a lifelong nonsmoker and does not drink alcohol or use illicit substances. Code status: Full code Healthcare power of assistant prosecuting attorney: Smoking status: Never smoker Alcohol intake: never Substance use: never Do You Feel Safe in your Home?: Yes Lack of Transportation: No Lack of Food: Never True Current Housing: I Have Housing Concerned About Future Housing: No Difficulty Paying Gas/Electric Bills: No Difficulty Paying for Meds: No Currently Unemployed: No Education: Bachelor's Degree Difficulty w/ Childcare or Family Care: No Gender identity (if verbalized by the patient): Male Spiritual care concerns: No Exam Day of Procedure 01/16/24 06:42
--- NOTE | 2024-01-16 07:24 | WPDHPUPDATE1 ---
History and Physical Update Update Date/Time: 01/16/24 07:24 History and Physical has been reviewed, including an updated exam of the patient. There are NO changes in the patient's condition. Risks, benefits, and alternatives have been discussed and questions answered. Patient agrees to proceed with procedure.
--- NOTE | 2024-01-16 07:36 | P.PNAN_ITS ---
Anes - Initial Pre Proc Eval Procedure: Operation Date: 01/16/24 07:30 Proposed Procedures p Cysto, RPG, Stone Ext, Stent Placement(Right) - Felix Salazar MD Date/Time: 01/16/24 07:36 Surgeon: Desiree Andrade DO Pre Op Diagnosis: right ureterolithiasis Patient Data Age: 78 Gender: M Height: 1.68 m Weight: 77 kg Last Vital Signs Temp 36.3 C L 01/16/24 06:42 Pulse 55 L 01/16/24 06:42 Resp 20 01/16/24 06:42 BP 127/75 01/16/24 06:42 Pulse Ox 100 01/16/24 06:42 Allergies Allergy/AdvReac Type Severity Reaction Status Date / Time No Known Allergies Allergy Verified 01/15/24 17:19 Home Medications Medication Instructions Recorded Confirmed Type Advanced Nerve Support 4 cap PO BID 01/05/19 01/15/24 History Efa 1 tablet PO QID 01/05/19 01/15/24 History Formula 220 1 tablet PO BID 01/05/19 01/15/24 History Gluco Gel 3 cap PO BID 01/05/19 01/15/24 History alpha lipoic acid 300 mg capsule 300 mg PO BID 01/05/19 01/15/24 History cranberry 500 mg capsule 500 mg PO BID 01/05/19 01/15/24 History omega 3-dha 120 mg-epa 180 mg-fish 1 cap PO BID 01/05/19 01/15/24 History oil 600 mg capsule (Extreme [place]-3) resveratrol 100 mg capsule 100 mg PO DAILY 01/05/19 01/15/24 History tamsulosin 0.4 mg capsule 1 mg PO DAILY 01/05/19 01/15/24 History vitamin E 670 mg (1,000 unit) 1,000 unit PO DAILY 01/05/19 01/15/24 History capsule Laboratory Tests 01/15/24 01/15/24 17:29 17:56 WBC 8.7 K/mm3 (4.5-10.0) RBC 4.21 L M/mm3 (4.6-6.20) Hgb 12.9 L g/dL (14.0-18.0) Hct 38.3 L % (42.0-52.0) MCV 91.0 fl (80-100) MCH 30.6 pg (26-34) MCHC 33.7 g/dl (32-36) RDW 12.4 % (11.5-14.5) Plt Count 231 k/mm3 (150-375) MPV 9.2 fl (7.4-10.4) Immature Gran % (Auto) 0.3 % (0-0.5) Neut % (Auto) 78.4 H % (45.5-73.1) Lymph % (Auto) 10.6 L % (18.3-44.2) [place] % (Auto) 8.8 H % (2.6-8.5) Eos % (Auto) 1.6 % (0-4.4) Baso % (Auto) 0.3 % (0.2-1.2) Lymph # (Auto) 0.92 K/mm3 (0.9-3.2) [place] # (Auto) 0.8 H K/mm3 (0.1-0.6) Eos # (Auto) 0.1 K/mm3 (0-0.3) Baso # (Auto) 0.0 K/mm3 (0.0-0.1) Abs Immat Gran (auto) 0.03 K/mm3 (0.00-0.031) Absolute Neuts (auto) 6.8 H K/mm3 (1.3-6.7) Absolute Nucleated RBC 0.000 K/mm3 (0.0-0.012) Nucleated RBC % 0.0 % (0.0-0.2) PT 14.0 Seconds (11.1-14.7) INR 1.1 APTT 28.5 Seconds (22.3-36.8) Sodium 137 mmol/L (137-145) Potassium 5.1 H mmol/L (3.4-5.0) Chloride 102 mmol/L (98-107) Carbon Dioxide 25 mmol/L (22-30) Anion Gap 10 mmol/L (4-12) BUN 22 H mg/dL (9-20) Creatinine 2.00 H mg/dL (0.7-1.3) Estim Creat Clear Calc 24 ml/min Estimated GFR 32 L (59 - ) Glucose 107 mg/dL (65-110) Calcium 9.1 mg/dL (8.4-10.2) Total Bilirubin 0.3 mg/dL (0.2-1.3) AST 21 U/L (17-59) ALT 17 U/L (6-50) Alkaline Phosphatase 76 U/L (38-126) Total Protein 8.0 g/dL (6.3-8.2) Albumin 4.5 g/dL (3.5-5.1) Urine Color Yellow (Yellow) Urine Appearance Clear (Clear) Urine pH 6.0 (5.0-9.0) Ur Specific [place] 1.020 (1.001-1.035) Urine Protein Negative mg/dL (Negative) Urine Glucose (UA) Negative mg/dL (Negative) Urine Ketones Negative mg/dL (Negative) Ur Blood (Man) Negative (Negative) Urine Nitrate Negative (Negative) Urine Bilirubin Negative (Negative) Urine Urobilinogen 0.2 mg/dL (<2.0) Leukocyte Esterase Rfl Negative ANEL/UL (Negative) Patient hx anesthesia problems: none Family hx anesthesia problems: none Results Review: All pre-operative results and documents have been reviewed as part of the pre- operative evaluation. 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 Montero History of resection of small bowel (2017) Hand access laparoscopic for sclerosing mesenteritis Hx of umbilical hernia repair (2013) Initial surgery in 2014: Underlay proceed mesh 4.3 centimeters Family History Family History Mother Family history of Alzheimer's disease Father Family history of pancreatic cancer Other Diabetes mellitus Social History Social History Social History: Patient lives with his 2nd . They have been since 1982. 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 He and his spend part of the year in [place]. He raised 2 sons. He is a lifelong nonsmoker and does not drink alcohol or use illicit substances. Code status: Full code Healthcare power of drafter mechanical: Smoking status: Never smoker Alcohol intake: never Substance use: never Do You Feel Safe in your Home?: Yes Lack of Transportation: No Lack of Food: Never True Current Housing: I Have Housing Concerned About Future Housing: No Difficulty Paying Gas/Electric Bills: No Difficulty Paying for Meds: No Currently Unemployed: No Education: Bachelor's Degree Difficulty w/ Childcare or Family Care: No Gender identity (if verbalized by the patient): Male Spiritual care concerns: No Anes - Eval Final PreProcedure Day of Procedure 01/16/24 07:36 Patient weight: overweight Heart: regular rate and rhythm Lungs: clear to auscultation Airway: Mallampati scale class II Neurological: alert and oriented Last oral intake: >/= 8 hours ASA classification: III Emergent: no Anesthetic plan: proceed Anesthesia type and monitoring: general LMA and standard monitoring Results Review: All pre-operative results and documents have been reviewed as part of the pre- operative evaluation. Informed Consent: The patient's anesthetic plan and its attendant risks and benefits were discussed with the patient/family/POA. Questions were solicited and answers provided to the satisfaction of the patient/family/POA.
--- NOTE | 2024-01-16 07:42 | P.OP_ITS ---
Procedure Note - Detailed Date of Procedure 01/16/24 Pre-op Diagnosis right ureterolithiasis Post-op Diagnosis Same Procedure Performed Cystoscopy, Right retrograde pyelogram, ureteroscopy, holmium laser lithotripsy, stent placement Surgeon Shai العراقي MD Anesthesia General Indications Obstructing right proximal and distal ureteral stones Findings Large >1cm proximal right ureteral stone; smaller 3-4mm distal right ureteral stones Description of Procedure Prior to the operation an informed consent was obtained.? The patient was brought back to the operative suite and a detailed timeout was performed.? General anesthesia was induced without complication.? The patient was administered IV antibiotics in the prophylactic form.? The patient was positioned in the dorsal lithotomy position with close attention to all pressure points and was prepped and draped in sterile fashion. We began the case using a rigid cystoscope to gain access into the bladder under direct visualization per urethra. However, he has hagan-urethral narrowing, so quickly switched from a 22Fr to 19Fr sheath -- even with that, the uretha was narrow, so because we already had a rigid ureteroscope open, I elected to gain access into the bladder using it. Cystoscopy was remarkable for trilobar BPH, hagan-urethral narrowing, and moderate-severe trabeculations -- I did not see any bladder tumors, but my range of motion was limited by the rigid ureteroscope as opposed to the 30 degree cystoscope that we typically use. We turned our attention to the right ureteral orifice and cannulated it using an 8/10 ureteral dilator and sensor wire. It was very difficult to pass the sensor wire into the distal ureter, but eventually could and we radiologically confirmed the wire to pass up into the renal pelvis before advancing the ureteral dilator into the distal ureter. Using a 7 Maltese semirigid ureteroscope I was able to traverse into the right ureter, next to the wire, and remarkably, the two 3-4mm stones passed on their own without need for laser lithotripsy. I suspect the sensor wire knocked them free, and the 8/10 dilator facilitated the distal ureter's widening enough for them to pass. I was not able to successfully basket extract the stones for chemical analysis due to having only the rigid ureteroscope in place, and not being able to angle down hard enough against the prostate. We performed a retrograde pyelogram to highlight the right renal pelvis, and, with our wire in place, we placed a 4.8Fr variable length double-J ureteral stent.? We left no string attached. Notably, his stent nearly retracted up into his distal ureter, such that the patent end was visible at the UO -- on X-ray, it appeared that his proximal curl doubled on itself, and likely was pulling it up. Quite fortunately, his stent moved out of the UO about 5mm (likely from peristalsis), and using the 0-tipped nitinol basket, we were able to grab it, and pull it further into the bladder. I used xray to confirm that the bend in the proximal curl was corrected, and that he now had a complete distal curl in the bladder. We confirmed excellent position fluoroscopically.? The patient tolerated the procedure well, and all counts were correct at the end of the case. PLAN: -PACU, floor, if pain controlled can be d/c to home -- has pain meds already -- Dr. Alvarenga already setting up outpatient ESWL Estimated Blood Loss 0 Urine Output 700
[2024-01-16] MEDS: ceFAZolin SODIUM 1 GM VIAL 2 GM IV PUSH (07:56)
[2024-01-16] MEDS: LIDOCAINE HCL 2% GEL UROJET 10 ML PKG MUCOUS MEM (07:58)
--- NOTE | 2024-01-16 08:06 | P.PNIM_ITS ---
Subjective Date/time seen: 01/16/24 08:06 Review of Systems Review of Systems: All systems reviewed & are unremarkable except as noted in HPI and below Objective Data Vital Signs Vital Signs: Vital Signs - 24 hr 01/15/24 17:21 01/15/24 19:49 01/15/24 22:09 Temperature 97.2 F L Pulse Rate 52 L 50 L 64 Respiratory Rate 16 18 18 Blood Pressure 187/82 H 154/74 H 169/74 H Pulse Oximetry 100 100 99 01/15/24 23:56 01/16/24 06:42 Temperature 98.5 F 97.3 F L Pulse Rate 59 L 55 L Respiratory Rate 20 20 Blood Pressure 108/54 L 127/75 Pulse Oximetry 98 100 Intake/Output Intake/Output: Intake & Output 01/13/24 01/14/24 01/15/24 01/16/24 23:59 23:59 23:59 23:59 Output Total 2100 Balance -2100 Meds/Results Medications: Active Medications Generic Name Dose Route Start Last Admin Trade Name Freq PRN Reason Stop Dose Admin Acetaminophen 650 mg 01/16/24 00:41 Acetaminophen 325 Mg Tablet PO Q4H PRN Mild Pain (1-3) or Fever Hydrocodone Bitart/Acetaminophen 1 tab 01/16/24 00:41 Hydrocodone/Acetaminophen (*Crx) 5-325 Mg Tablet PO Q6H PRN Pain Rated 4-6 Fentanyl Citrate 25 mcg 01/16/24 07:37 Fentanyl Citrate Inj (*Crx) 100 Mcg/2 Ml Vial IV PUSH Q2M PRN Pain Fish Oil 1 gm 01/16/24 09:00 [place] 3 Polyunsat Fatty Acids 1 Gm Cap PO BID URSZULA Hydromorphone HCl 0.5 mg 01/15/24 20:40 01/16/24 00:03 Hydromorphone Hcl Inj (*Crx) 1 Mg/Ml Syr IV PUSH 0.5 mg Q4H PRN Administration Pain Rated 7-10 Sodium Chloride 1,000 mls @ 125 mls/hr 01/15/24 20:40 01/15/24 22:42 Normal Saline Iv IV CONT 125 mls/hr .Q8H URSZULA Administration Lactated Ringer's 1,000 mls @ 30 mls/hr 01/16/24 06:45 Lr - Lactated Ringers Iv IV CONT .Q24H URSZULA Lactated Ringer's 1,000 mls @ 30 mls/hr 01/16/24 07:40 Lr - Lactated Ringers Iv IV CONT .Q24H [facility] Lactated Ringer's 1,000 mls @ 30 mls/hr 01/16/24 07:40 Lr - Lactated Ringers Iv IV CONT .Q24H [facility] Non-Formulary Medication 100 mg 01/16/24 09:00 Resveratrol PO 02/15/24 08:59 DAILY [facility] Ondansetron HCl 4 mg 01/15/24 20:40 Ondansetron Inj 4 Mg/2 Ml Vial IV PUSH Q4H PRN Nausea Ondansetron HCl 4 mg 01/16/24 07:37 Ondansetron Inj 4 Mg/2 Ml Vial IV PUSH ONCE PRN Nausea Tamsulosin HCl 0.8 mg 01/16/24 21:00 Tamsulosin Hcl 0.4 Mg Capsule PO QHS [facility] Radiology Results: ITS Impressions Abdomen/Pelvis CT 01/15/24 19:31 IMPRESSION: 10 x 12 mm right UPJ stone with mild pelviectasis and caliectasis. 3 mm and 4 mm calcifications also noted in the distal right ureter. Nodular calcified mesenteric masses, previously biopsied revealing fibrosis with lymphoplasmacytic infiltrate. 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 Urinary bladder wall thickening likely secondary to incomplete distention, cystitis, or outlet compromise from prostatomegaly. Labs Labs: Laboratory Results - last 24 hr 01/15/24 01/15/24 17:29 17:56 WBC 8.7 RBC 4.21 L Hgb 12.9 L Hct 38.3 L MCV 91.0 MCH 30.6 MCHC 33.7 RDW 12.4 Plt Count 231 MPV 9.2 Immature Gran % (Auto) 0.3 Neut % (Auto) 78.4 H Lymph % (Auto) 10.6 L [place] % (Auto) 8.8 H Eos % (Auto) 1.6 Baso % (Auto) 0.3 Lymph # (Auto) 0.92 [place] # (Auto) 0.8 H Eos # (Auto) 0.1 Baso # (Auto) 0.0 Abs Immat Gran (auto) 0.03 Absolute Neuts (auto) 6.8 H Absolute Nucleated RBC 0.000 Nucleated RBC % 0.0 PT 14.0 INR 1.1 APTT 28.5 Sodium 137 Potassium 5.1 H Chloride 102 Carbon Dioxide 25 Anion Gap 10 BUN 22 H Creatinine 2.00 H Estim Creat Clear Calc 24 Estimated GFR 32 L Glucose 107 Calcium 9.1 Total Bilirubin 0.3 AST 21 ALT 17 Alkaline Phosphatase 76 Total Protein 8.0 Albumin 4.5 Urine Color Yellow Urine Appearance Clear Urine pH 6.0 Ur Specific [place] 1.020 Urine Protein Negative Urine Glucose (UA) Negative Urine Ketones Negative Ur Blood (Man) Negative Urine Nitrate Negative Urine Bilirubin Negative Urine Urobilinogen 0.2 Leukocyte Esterase Rfl Negative
[2024-01-16] MEDS: LACTATED RINGERS 1,000 ML 30 ML IV CONT (08:20)
--- NOTE | 2024-01-16 08:44 | SUR.PHASEI ---
0844: Simple mask removed.
[2024-01-16] MEDS: OMEGA 3 POLYUNSAT FATTY ACIDS 1 GM CAP PO (10:05)
[2024-01-16 11:06] LABS: Alanine Aminotransferase 17 U/L (6-50); Albumin Level 4.1 g/dL (3.5-5.1); Alkaline Phosphatase 72 U/L (38-126); Anion Gap 10 mmol/L (4-12); Aspartate Amino Transferase 21 U/L (17-59); Bilirubin,Total 0.4 mg/dL (0.2-1.3); Blood Urea Nitrogen 29 mg/dL (9-20); Calcium 8.8 mg/dL (8.4-10.2); Carbon Dioxide 22 mmol/L (22-30); Chloride 106 mmol/L (98-107); Estimated CRCL calculation 19 ml/min; Estimated Glomerular Filt Rate 25; Glucose 152 mg/dL (65-110); Sodium 138 mmol/L (137-145)
--- NOTE | 2024-01-16 12:16 | P.DS_ITS ---
DS: Admitting Diagnosis Discharge Date 01/16/2024 Admitting Diagnosis calculus of proximal right ureter JOHN DS: Discharge Diagnosis Discharge Diagnosis (1) Calculus of proximal right ureter: Code(s): N20.1 - Calculus of ureter Status: Acute (2) Acute kidney injury: Code(s): N17.9 - Acute kidney failure, unspecified Status: Acute DS: Summary Hospital Course Reason for hospitalization: calculus of proximal right ureter JOHN Hospital Course: 78-year-old male with past medical history of BPH and history of kidney stones who presented to the ER with worsening right-sided abdominal pain. Patient vitals were stable and he was not meeting sepsis criteria on admission. Patient has had recurrent renal stone symptoms despite conservative outpatient management and has associated acute kidney injury. An abdomen xr was obtained and showed bilateral renal stones. An abdomen/ pelvis CT was performed which showed a 10 x 12 mm right UPJ stone with mild pelviectasis and caliectasis. 3 mm and 4 mm calcifications also noted in the distal right ureter. Also showed urinary bladder wall thickening likely secondary to incomplete distention, cystitis, or outlet compromise from prostatomegaly. Urology was consulted. Patient underwent a cystoscopy, Right Retrograde Pyelogram, Diagnostic Ureteroscopy, and stent placement on 01/[address] العراقي. Per urology, if pain was controlled following the procedure patient was able to d/c to home. Dr. Alvarenga is setting up outpatient ESWL. patient continues to have an acute kidney injury, however the etiology has been resolved. discussed with patient he needs to stay adequately hydrated and he is to obtain a BMP in 3 days to reassess kidney function. Patient is to follow up Urology in 1 week. At time of discharge patient had no complaints denies chest pain, shortness a breath, palpitations, nausea/vomiting, and abdominal pain. He did have slight pink- tinged urine however this is common following cystoscopies. Discussed with patient that if this worsens he is to either call Urology, his PCP or return to the hospital. Patient stated understanding. Patient discharged home in a stable condition. He is to obtain a BMP in 3 days to reassess renal function and follow up with urology in 1 week. Patient is also to follow up with his PCP in 1 week. Status at Discharge Functional status at discharge: independent ambulation Time Spent with Patient Time attestation: Total time spent providing and/or coordinating discharge services: Time spent: Greater than 30 minutes Exam 2 Narrative: AF HR 52 RR 16 SpO2 99 BP 142/61 General: male in no acute respiratory distress who is nontoxic appearing, lying semi recumbent in bed. HEENT: Normocephalic. Atraumatic. Extraocular movement intact. Sclera clear and anicteric. No facial asymmetry. Chest: Lungs are clear to auscultation bilaterally. No wheezes or crackles. CV: Heart was regular rate and rhythm. S1/S2. No murmurs, gallops, or rubs. Abd: Abdomen was soft. Nontender. Nondistended. Positive bowel sounds. No organomegaly or masses. Ext: No clubbing, cyanosis, or edema. 2+ DP pulses bilaterally. Neuro: Patient is alert and oriented x4. Cranial nerves 2-12 are intact. Speech is clear. DS: Data Data Completed and Pending Completed studies during hospitalization: retrograde pyelogram abdomen/pelvis CT Labs on day of discharge: Labs from last 24 hours 01/16/24 01/15/24 01/15/24 10:52 17:56 17:29 WBC 8.7 RBC 4.21 L Hgb 12.9 L Hct 38.3 L MCV 91.0 MCH 30.6 MCHC 33.7 RDW 12.4 Plt Count 231 MPV 9.2 Immature Gran % (Auto) 0.3 Neut % (Auto) 78.4 H Lymph % (Auto) 10.6 L [place] % (Auto) 8.8 H Eos % (Auto) 1.6 Baso % (Auto) 0.3 Lymph # (Auto) 0.92 [place] # (Auto) 0.8 H Eos # (Auto) 0.1 Baso # (Auto) 0.0 Abs Immat Gran (auto) 0.03 Absolute Neuts (auto) 6.8 H Absolute Nucleated RBC 0.000 Nucleated RBC % 0.0 PT 14.0 INR 1.1 APTT 28.5 Sodium 138 137 Potassium 5.0 5.1 H Chloride 106 102 Carbon Dioxide 22 25 Anion Gap 10 10 BUN 29 H 22 H Creatinine 2.50 H 2.00 H Estim Creat Clear Calc 19 24 Estimated GFR 25 L 32 L Glucose 152 H 107 Calcium 8.8 9.1 Total Bilirubin 0.4 0.3 AST 21 21 ALT 17 17 Alkaline Phosphatase 72 76 Total Protein 7.0 8.0 Albumin 4.1 4.5 Urine Color Yellow Urine Appearance Clear Urine pH 6.0 Ur Specific [place] 1.020 Urine Protein Negative Urine Glucose (UA) Negative Urine Ketones Negative Ur Blood (Man) Negative Urine Nitrate Negative Urine Bilirubin Negative Urine Urobilinogen 0.2 Leukocyte Esterase Rfl Negative Discharge Plan Discharge Attending physician on discharge: Leticia Campos Consulting providers: Shai العراقي Discharging Clinician: Roshni Bah Anticipated Discharge Date/Time: 01/16/24 11:38 Patient Disposition: Home, Self-Care Activity: as tolerated Diet: as tolerated Discharge Instructions: Discharge disposition: Patient was admitted to hospital for worsening right-sided flank pain On imaging he was found to have a large obstructing kidney stone on the right Urology was consulted Patient had a Cystoscopy, Right Retrograde Pyelogram, Diagnostic Ureteroscopy, Stent Placement on 01/[address] Malcom Alvarenga is setting up an outpatient lithotripsy to remove the stone Follow up in the urology office in 1 week, call for an appointment Patient had an elevated creatinine level due to the kidney stone obstruction He is to obtain a blood draw in 3 days to reassess this level Take all medications as prescribed Eat well balanced meals and stay hydrated Keep active to remain strong Trend urine output Encouraged to continue with yearly vaccinations Return to the emergency department if he developed sudden shortness of breath, chest pain, nausea, vomiting, upset stomach or intractable diarrhea Return to the emergency department if you develop fever greater than 101.5 Follow-up with the primary care physician within 1 week Thank you for [facility] [place] for your healthcare needs Patient Instructions: Kidney Stones (DC), Nephrostomy Tube Insertion (DC) Patient Language: Tongan Stand Alone Forms: General Discharge Information Follow-up/Referrals: Shai العراقي MD [Physician] - 1 Week Cody Garza MD [Primary Care Provider] - 1 Week Discharge Medications: Continued vitamin E 1,000 unit Capsule 1,000 unit PO DAILY tamsulosin 0.4 mg capsule 1 mg PO DAILY cranberry 500 mg Capsule 500 mg PO BID Extreme [place]-3 120-180-600 mg Capsule 1 cap PO BID Formula 220 1 tablet PO BID Efa 1 tablet PO QID alpha lipoic acid 300 mg Capsule 300 mg PO BID resveratrol 100 mg Capsule 100 mg PO DAILY Advanced Nerve Support 4 cap PO BID Gluco Gel 3 cap PO BID Other Ambulatory Orders: Basic Metabolic Panel (Routine) Timeframe: 3 Days Location: Determined by Patient Ordered By: Roshni Bah Date of admission: 01/15/24 20:41 Primary Care Provider: Cody Garza Admitting Provider: Desiree Andrade Attending physician on admission: Desiree Andrade Condition: Stable Hospitalist MIPS Heart Failure (Exclusion) Patient has history of Heart Transplant or Left Ventricular Assistive Device?: No IF YES, STOP HERE Heart Failure (Qualifier) Patient has current or prior documentation of LVEF less than or equal to 40%, or mod/servere depressed LVSF?: No IF NO, STOP HERE
== END 2024-01-16 14:02 | disposition home or self-care (01) ==
LOC: ANHED 20:44 → ANH3MED 01-16 11:46
PROVIDERS: Emergency Medicine; Student in an Organized Health Care Education/Training Program; Urology; Admitting Provider Internal Medicine; Emergency Provider Physician Assistant; PCP Pediatrics; Visit Provider Internal Medicine
PROC: (CPT 52352; principal; 2024-01-16 07:30)
DX: N20.1 Calculus of ureter (principal); N17.9 Acute kidney failure, unspecified; N40.1 Benign prostatic hyperplasia with lower urinary tract symptoms; R33.8 Other retention of urine; R79.89 Other specified abnormal findings of blood chemistry; G62.9 Polyneuropathy, unspecified
CPT/HCPCS: 52351; 52332; 36415; 74176; 74420; 80053; 81003; 85025; 85610; 85730; 96374; 96375; 96376; 99285; A9270; C1758; C1769; C2617; G0378; J0690; J1100; J1171; J2405; J2704; J3010; J7030; J7120; Q9966

== ENCOUNTER 2024-01-18 09:47 | Outpatient (CLI) | payer MEDICARE, OTHER, SELFPAY ==
--- NOTE | 2024-01-18 09:58 | ECG_ITS ---
Test Date: 2024-01-18 10:17:11 Measurements Intervals [place] Rate: 57 P: -39 [place]: 119 QRS: 7 QRSD: 102 T: 65 QT: 391 QTc: 382 Interpretive Statements SINUS BRADYCARDIA WITH SHORT [place] INTERVAL CONSIDER ANTERIOR INFARCT, AGE INDETERMINATE CONSIDER INFERIOR INFARCT, AGE INDETERMINATE BASELINE ARTIFACT- I, II, III, AVR, V4-V6 ABNORMAL ECG No previous ECG available for comparison Electronically Signed On 01-18-2024 10:25:43 RIB BUILDER by Musa Yung D.O.
== END 2024-01-18 09:48 | disposition home or self-care (01) ==
PROVIDERS: PCP Pediatrics; Visit Provider Urology
DX: N20.1 Calculus of ureter (principal); I10 Essential (primary) hypertension; Z01.818 Encounter for other preprocedural examination; R94.31 Abnormal electrocardiogram [ECG] [EKG]
CPT/HCPCS: 87086; 93005

== ENCOUNTER 2024-01-21 02:00 | Day surgery (SDC) | payer MEDICARE, OTHER, SELFPAY ==
--- NOTE | 2024-01-17 15:21 | PC.NURSE ---
Report to the Outpatient Waiting Room, entrance under the green pavilion located off [facility], at time _8 AM on date _01/21/24 . Planned Procedure Time: __10 AM .? Time changes happen often and if your time is changed the preop area will call you the afternoon before. - You and your visitor will be asked to self-screen and do not enter if you have any COVID symptoms. Please call surgeon if you need to reschedule. - A mask is optional within the hospital at this time. Patients may have clear liquids (water, carbonated beverages, clear teas, apple juice) until 3 hours prior to surgery(7 AM) with a maximum of 20 ounces. - No food from midnight until time of surgery and no smoking. This includes no chewing gum, candy or mints. - Infants may have breast milk until 4 hours before surgery, formula 6 hours prior to surgery. - Children will be allowed to drink immediately following surgery.? If applicable, please bring a bottle or sippy cup to assist with drinking. Juice, water, soda, and popsicles are readily available.? For infants on formula, please bring formula the day of surgery.? Pacifiers are allowed. Take only the following medications with a SIP of water on the morning of surgery: __NONE DO NOT STOP ANY OF YOUR OTHER PRESCRIPTION MEDICATIONS PRIOR TO SURGERY EXCEPT THE FOLLOWING Medications to discontinue per physician ___HOLD ALL VITAMINS AND SUPPLEMENTS 3 DAYS PRE OP. Date to take last dose_01/17/24 Please no make-up, nail slovak, hairspray, perfume, deodorant, or body powder the day of surgery.? No jewelry (including any body piercings) or valuables the day of surgery, leave them at home.? Please take a shower or bath the night before, or the morning of, surgery with an antibacterial soap.? Wear comfortable, loose fitting clothing.? Children are encouraged to wear pajamas. - Jewelry must be removed prior to entering the operating room.? Rings and piercings that are not removed may be cut off. - The hospital will not accept responsibility for valuables.? - Please leave all valuables, including medications, at home the day of surgery. If you are going home after surgery, a licensed racing car driver must drive you home.? - NO public transportation without another adult if you receive anesthesia. - We recommend that an adult stay with you for 24 hours following discharge. - We also recommend that you do not drive, make important decision, drink alcoholic beverages, or take any drugs that were not prescribed by your health care provider for at least 24 hours after your discharge time. For Pediatric surgeries, we recommend two adults accompany the child home. Follow any additional instructions given to you from your surgeon. Telephone instructions given to _PT and asked if any additional questions and then verbalized understanding. Patient advised to call surgeon office or pre surgery nurse liaison [phone] if any additional questions.
[2024-01-17 15:36] VITALS: BMI 27.4
[2024-01-21] VITALS (8 sets, daily range): BP systolic 153–169; BP diastolic 62–80; PULSE 40–54; RESP 12–14; TEMP 36.4–36.7; O2SAT 98–100
--- NOTE | ~2024-01-21 | XR_ITS ---
Supine and upright views of the abdomen Clinical history: Lithotripsy COMPARISON: 1124 Findings: Bowel gas pattern is nonspecific. No evidence for obstruction or free air. Right ureteral s tent in place. 14 mm right lower pole renal stone present. Probable small left renal stone. Stable de generative change in the lumbar spine. Impression: 14 mm right lower pole renal stone. Right ureteral stent. Suspected tiny left renal stone. Reviewed, dictated and finalized at location M. OR MARKETING DATA ANALYST Impression: 14 mm right lower pole renal stone. Right ureteral stent. Suspected tiny left renal stone.
[2024-01-21] MEDS: LACTATED RINGERS 1,000 ML 30 ML IV CONT (07:00)
--- NOTE | 2024-01-21 07:29 | WPDHPUPDATE1 ---
History and Physical Update Update Date/Time: 01/21/24 07:29 History and Physical has been reviewed, including an updated exam of the patient. There are NO changes in the patient's condition. Risks, benefits, and alternatives have been discussed and questions answered. Patient agrees to proceed with procedure. Proceed with eswl of right renal calculus
[2024-01-21] MEDS: ceFAZolin 2 GM/D5W 50 ML 2 GM/50 ML BAG IVPB (07:44)
--- NOTE | 2024-01-21 07:44 | P.PNAN_ITS ---
Anes - Initial Pre Proc Eval Procedure: Operation Date: 01/21/24 08:30 Proposed Procedures p Right Extracorporeal Shock Wave Lithotripsy - Osmar Alvarenga MD s Possible Cystoscopy, Right Ureteral Stent Placement - Osmar Alvarenga MD Date/Time: 01/21/24 07:44 Surgeon: Osmar Alvarenga MD Pre Op Diagnosis: Renal Right Kidney Stone Patient Data Age: 78 Gender: M Height: 1.68 m Weight: 77.2 kg Allergies Allergy/AdvReac Type Severity Reaction Status Date / Time No Known Allergies Allergy Verified 01/17/24 15:11 Home Medications Medication Instructions Recorded Confirmed Type Advanced Nerve Support 2 cap PO BID 01/05/19 01/17/24 History Efa 2 tablet PO BID 01/05/19 01/17/24 History Formula 220 1 tablet PO BID 01/05/19 01/17/24 History Gluco Gel 3 cap PO BID 01/05/19 01/17/24 History alpha lipoic acid 300 mg capsule 300 mg PO BID 01/05/19 01/17/24 History cranberry 500 mg capsule 1,000 mg PO BID 01/05/19 01/17/24 History omega 3-dha 120 mg-epa 180 mg-fish 1 cap PO BID 01/05/19 01/17/24 History oil 600 mg capsule (Extreme [place]-3) resveratrol 100 mg capsule 100 mg PO DAILY 01/05/19 01/17/24 History tamsulosin 0.4 mg capsule 1 mg PO DAILY 01/05/19 01/17/24 History vitamin E 670 mg (1,000 unit) 1,000 unit PO BID 01/05/19 01/17/24 History capsule lisinopril 10 mg tablet 10 mg PO DAILY 01/17/24 01/17/24 History Patient hx anesthesia problems: none Family hx anesthesia problems: none Results Review: All pre-operative results and documents have been reviewed as part of the pre- operative evaluation. 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 Montero History of resection of small bowel (2018) Hand access laparoscopic for sclerosing mesenteritis Hx of umbilical hernia repair (2014) Initial surgery in 2014: Underlay proceed mesh 4.3 centimeters Family History Family History Mother Family history of Alzheimer's disease Father Family history of pancreatic cancer Other Diabetes mellitus Social History Social History Social History: Patient lives with his 2nd . They have been since 1982. 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 He and his spend part of the year in [employer]. He raised 2 sons. He is a lifelong nonsmoker and does not drink alcohol or use illicit substances. Code status: Full code Healthcare power of neuropsychology medical consultant: Smoking status: Never smoker Alcohol intake: never Substance use: never Do You Feel Safe in your Home?: Yes Lack of Transportation: No Lack of Food: Never True Current Housing: I Have Housing Concerned About Future Housing: No Difficulty Paying Gas/Electric Bills: No Difficulty Paying for Meds: No Currently Unemployed: No Education: Bachelor's Degree Difficulty w/ Childcare or Family Care: No Living arrangements: with family Gender identity (if verbalized by the patient): Male Spiritual care concerns: No Anes - Eval Final PreProcedure Day of Procedure 01/21/24 07:44 Patient weight: normal Heart: regular rate and rhythm Lungs: clear to auscultation Airway: Mallampati scale class II Neurological: alert and oriented Last oral intake: >/= 8 hours ASA classification: III Emergent: no Anesthetic plan: proceed Anesthesia type and monitoring: general LMA and standard monitoring Results Review: All pre-operative results and documents have been reviewed as part of the pre- operative evaluation. Informed Consent: The patient's anesthetic plan and its attendant risks and benefits were discussed with the patient/family/POA. Questions were solicited and answers provided to the satisfaction of the patient/family/POA.
--- NOTE | 2024-01-21 08:31 | W.PM.PROC2 ---
Procedure Note - Detailed Date of Procedure 01/21/24 Pre-op Diagnosis Renal Right Kidney Stone Post-op Diagnosis Same Procedure Performed Lithotripsy of right renal calculus Surgeon Osmar Alvarenga MD Anesthesia General Description of Procedure Patient was taken to the operative suite correctly identified. Once anesthesia was obtained the stone was localized in both planes. Two thousand five hundred shocks were given the stone. There appeared to be fragmentation of the. Patient tolerated procedure well without any complications and was taken recovery stable condition. He will follow-up in 7-10 days with KUB. This completes dictation. Please send a copy of op note to the office Estimated Blood Loss 0 Drains Yes (Has stent already) Packing No Pathology None sent Complications No immediate complications Condition Stable Disposition PACU
== END 2024-01-21 10:17 | disposition home or self-care (01) ==
PROVIDERS: PCP Pediatrics; Visit Provider Urology
PROC: (CPT 50590; principal; 2024-01-21 08:30)
DX: N20.0 Calculus of kidney (principal)
CPT/HCPCS: 50590; 74018; J0690; J1100; J1596; J2003; J2371; J2405; J2704; J3010; J7030; J7120

== ENCOUNTER 2024-02-03 15:07 | Outpatient (CLI) | payer MEDICARE, OTHER, SELFPAY ==
--- NOTE | ~2024-02-03 | XR_ITS ---
XR abdomen/kub 1V Ordering provider: Osmar Alvarenga MD History: . Calcium kidney stone. LITHO JAN 20 F/U . Comparison: January 21, 2024 FINDINGS: BOWEL: Nonobstructive bowel gas pattern. ORGANOMEGALY: None. SIGNIFICANT PATHOLOGIC CALCIFICATIONS: Stone in the right kidney lower pole. right double-J stent. T iny stone in the left kidney lower pole. OTHER: No free air is seen under the diaphragm. Degenerative changes of the spine. Dextroscoliosis. Bilateral sacroiliitis. IMPRESSION: NO ACUTE ABDOMINAL FINDINGS. Right kidney stones with the right double-J stent. Tiny stone in the left kidney lower pole. Reviewed, dictated and finalized at location A. P PRODUCT MANAGER
== END 2024-02-03 15:08 | disposition home or self-care (01) ==
PROVIDERS: PCP Pediatrics; Visit Provider Urology
DX: N20.0 Calculus of kidney (principal); Z96.0 Presence of urogenital implants
CPT/HCPCS: 74018

== ENCOUNTER 2024-02-08 00:43 | Day surgery (SDC) | payer MEDICARE, OTHER, SELFPAY ==
[2024-02-07 16:16] VITALS: BMI 27.3
--- NOTE | 2024-02-07 16:42 | PC.NURSE ---
Report to the Outpatient Waiting Room, entrance under the green pavilion located off [facility], at time ___9:15AM____ on date ___02/08/24____. Planned Procedure Time: ___11:15AM .? Time changes happen often and if your time is changed the preop area will call you the afternoon before. - You and your visitor will be asked to self-screen and do not enter if you have any COVID symptoms. Please call surgeon if you need to reschedule. - A mask is optional within the hospital at this time. Patients may have clear liquids (water, carbonated beverages, clear teas, apple juice) until 3 hours prior to surgery with a maximum of 20 ounces. - No food from midnight until time of surgery and no smoking. This includes no chewing gum, candy or mints. - Infants may have breast milk until 4 hours before surgery, formula 6 hours prior to surgery. - Children will be allowed to drink immediately following surgery.? If applicable, please bring a bottle or sippy cup to assist with drinking. Juice, water, soda, and popsicles are readily available.? For infants on formula, please bring formula the day of surgery.? Pacifiers are allowed. Take only the following medications with a SIP of water on the morning of surgery: NONE DO NOT STOP ANY OF YOUR OTHER PRESCRIPTION MEDICATIONS PRIOR TO SURGERY EXCEPT THE FOLLOWING Medications to discontinue per physician ___HOLD ALL VITAMINS/SUPPLEMENTS AND DICLOFENAC 5 DAYS PRE-OP PER DR STEINER/ PER PATIENT. Date to take last dose 01/04/24 Please no make-up, nail fijian, hairspray, perfume, deodorant, or body powder the day of surgery.? No jewelry (including any body piercings) or valuables the day of surgery, leave them at home.? Please take a shower or bath the night before, or the morning of, surgery with an antibacterial soap.? Wear comfortable, loose fitting clothing.? Children are encouraged to wear pajamas. - Jewelry must be removed prior to entering the operating room.? Rings and piercings that are not removed may be cut off. - The hospital will not accept responsibility for valuables.? - Please leave all valuables, including medications, at home the day of surgery. If you are going home after surgery, a licensed service car driver must drive you home.? - NO public transportation without another adult if you receive anesthesia. - We recommend that an adult stay with you for 24 hours following discharge. - We also recommend that you do not drive, make important decision, drink alcoholic beverages, or take any drugs that were not prescribed by your health care provider for at least 24 hours after your discharge time. For Pediatric surgeries, we recommend two adults accompany the child home. Follow any additional instructions given to you from your surgeon. Telephone instructions given to ____PATIENT and asked if any additional questions and then verbalized understanding. Patient advised to call surgeon office or pre surgery nurse liaison [phone] if any additional questions.
[2024-02-08] VITALS (10 sets, daily range): BP systolic 144–188; BP diastolic 57–79; PULSE 43–71; RESP 10–18; TEMP 36.1–36.4; O2SAT 100; BMI 27.1
--- NOTE | ~2024-02-08 | XR_ITS ---
EXAMINATION: XR retrograde pyelo w/stent RT DATE: 02/08/2024 11:50 COLLECTION SYSTEMS TECHNICIAN INDICATION: RIGHT RETRO/STENT . TECHNIQUE: 1 fluoroscopic image of the right abdomen were obtained during right retrograde pyelograph y with stent placement, performed by Osmar Alvarenga MD. I was not present during the procedur e. Fluoroscopy exposure time was 46.6 seconds. Air Kerma 16.99 mGy. DAP [id number] mGym2. COMPARISON: X-ray abdomen 02/03/2024 FINDINGS/IMPRESSION: Fluoroscopic documentation of right retrograde pyelography with stent placement. Please refer to the operative note for complete procedural details . Reviewed, dictated and finalized at location K. ECTION SYSTEMS TECHNICIAN
[2024-02-08] MEDS: LACTATED RINGERS 1,000 ML 30 ML IV CONT (10:05)
--- NOTE | 2024-02-08 10:09 | WPDHPUPDATE1 ---
History and Physical Update Update Date/Time: 02/08/24 10:09 History and Physical has been reviewed, including an updated exam of the patient. There are NO changes in the patient's condition. Risks, benefits, and alternatives have been discussed and questions answered. Patient agrees to proceed with procedure. Proceed with cystoscopy, right retrograde, right ureteroscopy with holmium laser, stent exchange
--- NOTE | 2024-02-08 11:30 | WPDANESEPPF ---
Anes - Initial Pre Proc Eval Procedure: Operation Date: 02/08/24 11:15 Proposed Procedures p Cystoscopy, Right Ureteroscopy, Right Retrograde Pyelogram, Holmium Laser Lithotripsy, Right Stone Extraction, Right Stent Exchange - Osmar Alvarenga MD Date/Time: 02/08/24 11:30 Surgeon: Osmar Alvarenga MD Pre Op Diagnosis: Rt Renal Stone Patient Data Age: 78 Gender: M Height: 1.68 m Weight: 76.4 kg Last Vital Signs Temp 97.0 F L 02/08/24 09:05 Pulse 50 L 02/08/24 09:05 Resp 18 02/08/24 09:05 BP 157/57 H 02/08/24 09:05 Pulse Ox 100 02/08/24 09:05 O2 Del Method Room Air 02/08/24 09:05 Allergies Allergy/AdvReac Type Severity Reaction Status Date / Time No Known Allergies Allergy Verified 02/08/24 11:11 Home Medications ?Medication ?Instructions ?Recorded ?Confirmed ?Type Formula 220 1 tablet PO BID 01/05/19 02/07/24 History alpha lipoic acid 300 mg capsule 300 mg PO BID 01/05/19 02/08/24 History cranberry 500 mg capsule 1,000 mg PO BID 01/05/19 02/08/24 History omega 3-dha 120 mg-epa 180 mg-fish 3 cap PO BID 01/05/19 02/08/24 History oil 600 mg capsule (Extreme Theresa-3) resveratrol 100 mg capsule 100 mg PO DAILY 01/05/19 02/07/24 History tamsulosin 0.4 mg capsule 1 mg PO DAILY 01/05/19 02/07/24 History lisinopril 10 mg tablet 10 mg PO DAILY 01/17/24 02/07/24 History diclofenac sodium 50 mg 50 mg PO HS 02/07/24 02/08/24 History tablet,delayed release diclofenac sodium 75 mg 75 mg PO QAM 02/07/24 02/08/24 History tablet,delayed release glucosamine sulfate 500 mg tablet 1,500 mg PO BID 02/07/24 02/08/24 History (Glucosamine) omega 7-yrs-tmo-fish oil 900 3 cap PO BID 02/07/24 02/08/24 History mg-1,400 mg capsule,delayed release vitamin B complex 1 tablet PO DAILY 02/07/24 02/08/24 History vitamin E 670 mg (1,000 unit) 670 mg PO DAILY 02/07/24 02/08/24 History capsule Patient hx anesthesia problems: none Family hx anesthesia problems: none Results Review: All pre-operative results and documents have been reviewed as part of the pre-operative evaluation. 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 Montero History of resection of small bowel (2017) Hand access laparoscopic for sclerosing mesenteritis Hx of umbilical hernia repair (2013) Initial surgery in 2014: Underlay proceed mesh 4.3 centimeters Family History Family History Mother Family history of Alzheimer's disease Father Family history of pancreatic cancer Other Diabetes mellitus Social History Social History Social History: Patient lives with his 2nd . They have been since 1982. 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 He and his spend part of the year in [place]. He raised 2 sons. He is a lifelong nonsmoker and does not drink alcohol or use illicit substances. Code status: Full code Healthcare power of [place] attorney: Smoking status: Never smoker Alcohol intake: never Substance use: never Do You Feel Safe in your Home?: Yes Lack of Transportation: No Lack of Food: Never True Current Housing: I Have Housing Concerned About Future Housing: No Difficulty Paying Gas/Electric Bills: No Difficulty Paying for Meds: No Currently Unemployed: No Education: Bachelor's Degree Difficulty w/ Childcare or Family Care: No Living arrangements: with family Additional living arrangements comments: Gender identity (if verbalized by the patient): Male Spiritual care concerns: No Anes - Eval Final PreProcedure Day of Procedure 02/08/24 11:30 Patient weight: overweight Lungs: clear to auscultation Airway: Mallampati scale class II Neurological: alert and oriented ASA classification: III Emergent: no Anesthetic plan: proceed Anesthesia type and monitoring: general LMA Results Review: All pre-operative results and documents have been reviewed as part of the pre-operative evaluation. Informed Consent: The patient's anesthetic plan and its attendant risks and benefits were discussed with the patient/family/POA. Questions were solicited and answers provided to the satisfaction of the patient/family/POA.
[2024-02-08] MEDS: ceFAZolin 2 GM/D5W 50 ML 2 GM/50 ML BAG IVPB (11:40)
--- NOTE | 2024-02-08 11:45 | P.PNAN_ITS ---
Anes - Eval Final PreProcedure Day of Procedure 02/08/24 11:45 Patient weight: overweight Heart: regular rate and rhythm Lungs: clear to auscultation Airway: Mallampati scale class II Neurological: alert and oriented Last oral intake: >/= 8 hours ASA classification: III Emergent: no Anesthetic plan: proceed Anesthesia type and monitoring: general LMA and standard monitoring Results Review: All pre-operative results and documents have been reviewed as part of the pre- operative evaluation. exam per SHERRY. Informed Consent: The patient's anesthetic plan and its attendant risks and benefits were disc ussed with the patient/family/POA. Questions were solicited and answers provided to the satisfaction of the patient/family/POA.
[2024-02-08] MEDS: LIDOCAINE HCL 2% GEL UROJET 10 ML PKG MUCOUS MEM (12:04)
--- NOTE | 2024-02-08 12:32 | W.PM.PROC2 ---
Procedure Note - Detailed Date of Procedure 02/08/24 Pre-op Diagnosis Rt Renal Stone Post-op Diagnosis Same Procedure Performed Cystoscopy, right retrograde pyelogram, right ureteroscopy with holmium laser, stone extraction, right ureteral stent exchange 4.8 [place] contour string left on Surgeon Osmar Alvarenga MD Anesthesia General Description of Procedure Patient was taken to the operative suite correctly identified. Once anesthesia was obtained was placed in dorsal lithotomy position and prepped and draped usual sterile fashion. Nineteen [place] scope inserted into the urethra. He does have somewhat of a tight urethra. Upon entering the bladder the prior stent was grasped and brought out to the meatus. Wire was placed through the stent. Ureteral access sheath was placed. The CVAC ureteral scope was inserted. The stone fragments were located in lower pole. Using a 200 micron fiber I dusted the stones. Using the CVAC all fragments were aspirated. Reinspection of the entire collecting system revealed no residual stones. Pyelogram was then performed confirm placement the stent. 4.8 [place] contour stent was then placed with the proximal end coiled in the renal pelvis and the distal in the bladder. The string was left attached. Patient will remove that on Wednesday or Wednesday if able to leave it in that long. He is leaving for [place] the following week and thus were unable to follow-up. If he has any problems he will call us. This completes dictation. Please send a copy of op note to my office Estimated Blood Loss 0 Drains Yes Packing No Pathology Yes Complications No immediate complications Condition Stable Disposition PACU
--- NOTE | 2024-02-08 13:25 | SUR.PHASEI ---
Dr. Isaacs notified of patient's elevated BP. Ordered for patient to take lisinopril once he is discharged home. No further orders.
[2024-02-08] MEDS: oxyCODONE HCL (*CRX) 5 MG TAB IR PO (13:50)
[2024-02-08] MEDS: KETOROLAC 15 MG/ML VIAL (*BKC) IV PUSH (14:10)
[2024-02-08] MEDS: oxyBUTYnin CHLORIDE 5 MG TABLET PO (14:17)
== END 2024-02-08 15:15 | disposition home or self-care (01) ==
PROVIDERS: PCP Pediatrics; Visit Provider Urology
PROC: (CPT 52352; principal; 2024-02-08 11:15)
DX: N20.0 Calculus of kidney (principal); M19.90 Unspecified osteoarthritis, unspecified site; N40.1 Benign prostatic hyperplasia with lower urinary tract symptoms; R35.0 Frequency of micturition; R39.12 Poor urinary stream; K65.4 Sclerosing mesenteritis; Z98.890 Other specified postprocedural states; Z80.0 Family history of malignant neoplasm of digestive organs
CPT/HCPCS: C9761; 74420; 82365; 88300; A9270; C1747; C1769; C1894; C2617; J0690; J1100; J1596; J1885; J2003; J2405; J2704; J3010; J7120; Q9966